=== PATIENT | female | born 1955 | race Caucasian/White ===

== ENCOUNTER 2017-09-26 05:38 | Day surgery (SDC) | END 2017-09-26 11:19 | disposition home or self-care (01) ==

== ENCOUNTER 2018-11-16 05:50 | Day surgery (SDC) | payer OTHER ==
[~2018-11-16] VITALS: Ht 157.5 cm; Wt 75.3 kg
[~2018-11-16 05:50] MED LIST: METF100010 PO; OMEP20CA16 PO; SIMV40TA3 PO; SITA50TA2 PO
[2018-11-16 06:39] VITALS: Ht 157.5 cm; Wt 75.3 kg
[2018-11-16] MEDS ORDERED: RANI15SY GTB (06:48)
[2018-11-16 07:27] VITALS: BP 131/66; PULSE 75; RESP 20
[2018-11-16] MEDS ORDERED: FENTAnyl 50 MCG/ML VIAL ONE (08:19)
[2018-11-16] MEDS ORDERED: MIDAZOLAM 1 MG/ML 2 ML INJ ONE (08:19)
[2018-11-16] MEDS ORDERED: ONDANSETRON 4 MG INJ ONE (08:26)
[2018-11-16 08:34] VITALS: BP 139/55; PULSE 83; RESP 16
--- NOTE | 2018-11-16 12:48 | CONS ---
DATE OF ADMISSION: 11/16/2018 DATE OF CONSULTATION: PATIENT NAME: SCARLET JOSEPH TYPE OF CONSULTATION: Preoperative gastroenterology. Dear Dr. Hardwick: I thank you very much for this kind referral. HISTORY OF PRESENT ILLNESS: Ms. Scarlet Joseph is a 63-year-old female patient who has been referred t o me for further evaluation of upper abdominal pain associated with bloating. The patient has been t aking omeprazole and Zantac without relief. She also complains of chronic heartburn. The patient loya s family history of gastric cancer. Her appetite has been good, and no weight loss. No history of g allstones. The patient has history of fatty liver. Denies any change in the bowel habit or rectal b leeding. Not a hypertensive. She has diabetes. No heart disease, lung problem or kidney disease. She has hyperlipidemia. SOCIAL HISTORY: Nonsmoker. No alcohol abuse. FAMILY HISTORY: No family history of gastrointestinal tract neoplasm. ALLERGIES: No drug allergies. MEDICATIONS: 1. Omeprazole. 2. Zantac. 3. Metformin. 4. Januvia. 5. Simvastatin. She is 5 feet 1 inch tall and weighs 164 pounds. HEART: Normal heart sounds. LUNGS: Clear. ABDOMEN: Soft, no masses. Normal bowel sounds. NEUROLOGIC: Normal neurological exam. IMPRESSION: 1. Upper abdominal pain and chronic heartburn, not responding to therapy with omeprazole and Zantac. 2. Family history of gastric cancer. 3. The patient states she had a colonoscopy done by another cop, and no colon neoplas m was identified. 4. Diabetes mellitus. 5. Hyperlipidemia. 6. History of fatty liver. PLAN: 1. Abdominal ultrasound and endoscopy for further evaluation. 2. The patient was strongly advised to lose weight and have a low-fat diet and have good control of serum lipids because of fatty liver. The procedure and possible complications are well explained to the patient. She understands and cons ents to the procedure. I thank you once again. With warmest personal regards, Dictated By: RADHA OLIVAS/MARIE Conf#: [id number] DID#: [id number]
== END 2018-11-16 10:01 | disposition home or self-care (01) ==
LOC: GIL 05:50
PROVIDERS: ATTEND Internal Medicine Gastroenterology
DX: K29.50 Unspecified chronic gastritis without bleeding (principal); K21.9 Gastro-esophageal reflux disease without esophagitis
CPT/HCPCS: 43239; 88305; 88312; J2250; J2405; J3010